=== PATIENT | female | born 1955 | race Caucasian/White ===

== ENCOUNTER → 2024-01-03 | Outpatient (CLI) | payer MEDICARE | END | disposition home or self-care (01) | LOC: RAH 10:03 | PROVIDERS: ATTEND Internal Medicine | DX: M17.0 Bilateral primary osteoarthritis of knee (principal); M48.061 Spinal stenosis, lumbar region without neurogenic claudication; M47.816 Spondylosis without myelopathy or radiculopathy, lumbar region; Z90.49 Acquired absence of other specified parts of digestive tract | CPT/HCPCS: 72100; 73565; 73560 ==

== ENCOUNTER → 2025-03-16 | Outpatient (CLI) | payer MEDICARE ==
--- NOTE | 2025-03-16 17:13 | HMCIMG ---
EXAM: XR Lumbar spine, 3 Views total. CLINICAL HISTORY: 69-year-old female with lower back pain. COMPARISON: XR Lumbar Spine dated 01/03/2024. FINDINGS: BONES: Moderate degenerative changes of the lumbar spine. Mild retrolisthesis of L2 on L3. DISCS/DEGENERATIVE CHANGES: The disc spaces are preserved, with moderate degenerative changes of the lumbar spine. SOFT TISSUES: No prevertebral soft tissue swelling evident in the lumbar spine. Cholecystectomy clips seen and electronic devices projected in the right lower quadrant. IMPRESSION: 1. Mild retrolisthesis of L2 on L3, similar to the prior XR Lumbar Spine 01/03/2024 at 10:54. 2. Moderate degenerative changes of the lumbar spine. /[place]
--- NOTE | 2025-03-16 17:19 | HMCIMG ---
EXAM: CR right Knee, 3 View. CLINICAL HISTORY: PAININ RIGHT KNEE COMPARISON: None provided. FINDINGS: BONES: No acute fracture or aggressive appearing osseous lesion. JOINTS: Small suprapatellar joint effusion. Tricompartmental joint space narrowing. Small osteophytes. Bony structures appear demineralized. SOFT TISSUES: The soft tissues are unremarkable. IMPRESSION: 1. No acute osseous injury. 2. Small suprapatellar joint effusion. 3. Osteoarthritic changes with tricompartmental joint space narrowing and small osteophytes. 4. Osteopenia. /[place]
--- NOTE | 2025-03-16 17:20 | HMCIMG ---
EXAM: CR Thoracic Spine, 1 View. CLINICAL HISTORY: PAIN IN THORACIC SPINE COMPARISON: None provided. FINDINGS: BONES: No acute fracture or aggressive appearing osseous lesion. The bony structures appear demineralized. DISCS / DEGENERATIVE CHANGES: The disc spaces are preserved. SOFT TISSUES: The paraspinal soft tissue lines are unremarkable. The visualized lungs are clear. Right upper quadrant probable cholecystectomy surgical clips MISCELLANEOUS: Visualization of the upper thoracic spine is limited on the lateral view by overlying structures. IMPRESSION: 1. No acute osseous injury. 2. Osteopenia. If there is high clinical concern for an acute fracture a CT Scan versus MRI exam is recommended. /[place]
== END | disposition home or self-care (01) ==
LOC: RAH 16:00
PROVIDERS: ATTEND Nurse Practitioner Family
DX: M47.816 Spondylosis without myelopathy or radiculopathy, lumbar region (principal); M85.88 Other specified disorders of bone density and structure, other site; M43.16 Spondylolisthesis, lumbar region; M17.11 Unilateral primary osteoarthritis, right knee; M25.461 Effusion, right knee; M25.761 Osteophyte, right knee; M54.50 Low back pain, unspecified; M25.561 Pain in right knee; M54.6 Pain in thoracic spine
CPT/HCPCS: 72070; 72100; 73562

== ENCOUNTER → 2025-05-27 | Outpatient (CLI) | payer MEDICARE ==
--- NOTE | 2025-05-28 08:59 | HMCIMG ---
EXAM: CR left Knee, 3 View. CLINICAL HISTORY: LT KNEE PAIN COMPARISON: None provided. FINDINGS: BONES: No acute fracture or aggressive appearing osseous lesion. Mild osteopenia. JOINTS: The joint spaces show early osteoarthritic changes. There is no significant joint effusion appreciated. SOFT TISSUES: The soft tissues are unremarkable. IMPRESSION: 1. No acute findings. 2. Early osteoarthritic changes in the left knee. /[place]
== END | disposition home or self-care (01) ==
LOC: RAH 15:34
PROVIDERS: ATTEND Internal Medicine
DX: M17.12 Unilateral primary osteoarthritis, left knee (principal); M85.88 Other specified disorders of bone density and structure, other site; M25.562 Pain in left knee
CPT/HCPCS: 73562